=== PATIENT | female | born 1995 | race Caucasian/White ===

== ENCOUNTER 2016-10-05 21:19 | Observation (INO) | payer OTHER ==
[2016-10-05 22:01] VITALS: PULSE 94
[2016-10-05 23:09] VITALS: BP 130/90
== END 2016-10-05 23:27 | disposition home or self-care (01) ==
LOC: OB 21:19 → UNDOADMOB 21:19 → UNDODISOB 23:27
PROVIDERS: ADMIT Family Medicine; ATTEND Family Medicine
DX: Z34.83 Encounter for supervision of other normal pregnancy, third trimester (principal)
CPT/HCPCS: 80307; G0378

== ENCOUNTER 2016-10-08 11:49 | Inpatient (IN) | payer OTHER ==
[~2016-10-08 11:49] MED LIST: Astramorph-Pf 5 MG/10 ML IJ ONE; Decadron 4 MG INJ IV ONE; EPINEPHRINE 1:1000 1 ML AMP IJ ONE; Naropin 0.5% 30 ML VIAL IJ ONE; PHENYLEPHRINE HCL IJ ONE; Pitocin 10 UNITS/ML IV ONE
[2016-10-08] MEDS ORDERED: Sodium Chloride 0.9% 1000 ML 1,000 ML ONE (12:36)
[2016-10-08] MEDS ORDERED: Reglan 10 MG/2 ML IV SCH (13:15)
[2016-10-08] MEDS ORDERED: Pepcid 20 MG VIAL IV SCH (13:15)
[2016-10-08] MEDS ORDERED: BICITRA 30 ML CUP PO SCH (13:15)
[2016-10-08] MEDS ORDERED: Sodium Chloride 0.9% 1000 ML 1,000 ML IV STA (13:16)
[2016-10-08 13:39] LABS: Mean Cell Volume 92.4 fl (78-100); Mean Platelet Volume 10.6 fl (6-9.5); Platelet Count 322 K/mm3 (150-450); Red Blood Count 4.07 M/mm3 (4.1-5.4); Red Cell Distribution Width 13.1 % (11.5-14.0); White Blood Count 12.4 K/mm3 (4.0-10.5)
[2016-10-08 13:40] LABS: Mean Corpuscular Hemoglobin 30.9 pg (26-32)
[2016-10-08] MEDS ORDERED: Lactated Ringers 1,000 ML IV ONE (13:43)
[2016-10-08] MEDS ORDERED: KEFZOL 1 GM ONE (13:43)
[2016-10-08] MEDS: Lactated Ringers 1,000 ML IV SCH (13:44)
[2016-10-08 13:50] LABS: INR 0.93 (0.8-3.0); PROTIME 10.4 SECONDS (9.95-12.35)
[2016-10-08 13:53] LABS: PTT 27.5 SECONDS (25.3-37.0)
[2016-10-08 14:16] LABS: COMPLETE URINE MICROSCOPIC? YES; Collection Type VOID; Ph 5.5 (5-6)
[2016-10-08 14:17] LABS: Bacteria FEW /HPF (NEGATIVE); Epithelial Cells MANY /HPF (FEW); Mucus MODERATE /HPF (NEGATIVE); WBC 0-2 /HPF (0-5)
[2016-10-08] MEDS ORDERED: OFIRMEV 100 ML IV ONE (14:47)
[2016-10-08] MEDS ORDERED: Zofran 4 MG/2 ML VIAL IV PRN (16:03)
[2016-10-08] MEDS ORDERED: Nubain 10 MG/ML IV PRN (16:03)
[2016-10-08] MEDS ORDERED: CLARITIN 10 MG PO PRN (16:03)
[2016-10-08] MEDS ORDERED: PERCOCET TABLET 5/325MG PO PRN (16:03)
[2016-10-08] MEDS ORDERED: Narcan 0.4 MG/ML IV PRN (16:03)
[2016-10-08] MEDS ORDERED: TYLENOL EXTRA STRENGTH 500 MG PO PRN (16:03)
[2016-10-08] MEDS ORDERED: DEMEROL 50 MG IV PRN (16:03)
[2016-10-08] MEDS ORDERED: TUCKS TP PRN (16:03)
[2016-10-08] MEDS ORDERED: Anucort-HC SUPPOSITORY PR PRN (16:03)
[2016-10-08] MEDS ORDERED: Mylicon 80MG PO PRN (16:03)
[2016-10-08] MEDS ORDERED: CORTISONE 1% CREAM TP PRN (16:03)
[2016-10-08] MEDS ORDERED: LANSINOH 40 GM TOP PRN (16:03)
[2016-10-08] MEDS ORDERED: HOLD NARCOTIC ANALGESICS AND SEDATIVES X24 HR MC PRN (16:03)
[2016-10-08] MEDS ORDERED: Dulcolax 10 MG SUPP PR PRN (16:03)
[2016-10-08] MEDS ORDERED: MORPHINE SULFATE 2 MG INJ IV PRN (16:03)
[2016-10-08] MEDS: Dextrose 5%-Lr IV Solution 1000 ML 1,000 ML IV SCH (16:51)
[2016-10-08] MEDS: BENADRYL 50 MG/ML IV PRN (16:54)
[2016-10-08] MEDS ORDERED: Adacel Vial IM ONE (18:00)
[2016-10-08] MEDS: Colace 100 MG PO SCH (22:01)
[2016-10-08] MEDS: Sodium Chloride 0.9% 10 ML FLUSH Syringe IJ SCH (23:43)
[2016-10-09] MEDS: Dextrose 5%-Lr IV Solution 1000 ML 1,000 ML IV SCH ×2 (00:09→16:28)
[2016-10-09] MEDS: BENADRYL 50 MG/ML IV PRN (02:41)
[2016-10-09 05:51] LABS: Mean Cell Volume 93.5 fl (78-100); Mean Corpuscular Hemoglobin 30.9 pg (26-32); Mean Platelet Volume 10.9 fl (6-9.5); Platelet Count 286 K/mm3 (150-450); Red Blood Count 3.52 M/mm3 (4.1-5.4); Red Cell Distribution Width 13.2 % (11.5-14.0); White Blood Count 19.8 K/mm3 (4.0-10.5)
[2016-10-09 07:34] LABS: BAND 9 % (0.0-2.0); Total Cells Counted 100
[2016-10-09 07:35] LABS: Platelet Estimate NORMAL (NORMAL); Toxic Granulation 1+
--- NOTE | 2016-10-09 07:46 | OP ---
SURGERY DATE/TIME: 10/08/2016 1413 PREOPERATIVE DIAGNOSES: 1) Term intrauterine . 2) Previous section. 3) Labor. POSTOPERATIVE DIAGNOSES: 1) Term intrauterine . 2) Previous section. 3) Delivered. PROCEDURE: Repeat lower uterine segment transverse incision section. SURGEON: Dr. Arias. ANESTHESIA: Spinal. HISTORY: The patient is a 21 year old white female presenting now for elective repeat section. The patient is at 38 and a half weeks. She presented in labor. The patient was felt the need to have the procedure performed presently due to the fact that she was in labor. The patient was reappraised of the risks of the procedure including the risk of wound infection, possible bleeding requiring transfusion, and possible injury to any intra-abdominal organs. The patient verbalized her understanding and desired to have the procedure performed. DESCRIPTION OF PROCEDURE: The patient was prepped and draped in the supine position. After adequate regional anesthesia was confirmed, a Pfannenstiel incision was made over the previous scar and carried down sharply through the fascia which was divided in a horizontal fashion. The rectus muscles were then bluntly and sharply dissected away from the overlying fascia and bluntly retracted laterally. The peritoneal cavity was then entered. A bladder flap was developed and the bladder was retracted inferiorly. The uterus was scored in a horizontal fashion and entered in the midline. It was noted to be quite thin. The wound was extended using bandage scissors. A white male was delivered through the abdominal wound. The cord was doubly clamped and divided between the clamps. The baby was handed off for further care. The placenta was then manually removed from the uterus. The uterus was then exteriorized and wrapped in moist gauze. The wound edges were then reapproximated using 1-0 chromic suture in a running, interlocking fashion. The cul-de-sac area was then swabbed clear of blood and amniotic fluid and the uterus was replaced in the abdominal cavity. Paracolic gutters were also swabbed clear of blood of amniotic fluid. The peritoneum was then repaired using 3-0 chromic sutures in a running fashion. The fascia was repaired using 0 Vicryl suture in a running fashion. The skin edges were reapproximated using jeannette. The sponge, needle and instrument counts were reported as correct at the end of the procedure. Estimated blood loss was 350 cc. The patient was taken back to the recovery room in good condition.
[2016-10-09] MEDS: Colace 100 MG PO SCH ×2 (09:42→20:15)
[2016-10-09] MEDS: FERREX 150 PO SCH (09:42)
[2016-10-09] MEDS ORDERED: M-M-R II Vaccine With Diluent SQ ONE (10:00)
[2016-10-09 11:18] VITALS: O2SAT 100
[2016-10-09] MEDS ORDERED: Tylenol #3 Tablet PO PRN (16:03)
[2016-10-09] MEDS ORDERED: Phenergan 25 MG INJ IM PRN (16:03)
[2016-10-09] MEDS ORDERED: Ambien 10 MG PO PRN (16:03)
[2016-10-09] MEDS ORDERED: DEMEROL 75 MG IM PRN (16:03)
[2016-10-09] MEDS: Sodium Chloride 0.9% 10 ML FLUSH Syringe IJ SCH (16:27)
[2016-10-09] MEDS: Lactated Ringers 1,000 ML IV SCH ×2 (16:28)
[2016-10-09] MEDS: MOTRIN 400 MG PO PRN (16:57)
[2016-10-10] MEDS: MOTRIN 400 MG PO PRN ×2 (00:56→07:57)
[2016-10-10] MEDS: FERREX 150 PO SCH (07:56)
[2016-10-10] MEDS: Colace 100 MG PO SCH (07:57)
--- NOTE | 2016-10-10 10:48 | DS ---
DISCHARGE DIAGNOSIS: SECTION DELIVERY TERM INTRAUTERINE . HOSPITAL COURSE: The patient is a 21 year-old white female presented to the hospital for elective repeat section. The patient had the procedure performed on the afternoon of 10/08/2016 due to presenting in labor at 38 1/2 weeks. The patient did well postoperatively. She is afebrile with stable vital signs. Her postoperative hemoglobin was 10.9 with PLT count 286,000. The patient is felt to be ready for discharge home by the morning of 10/10/2016 with instructions to follow up in the office in six days for removal of the jeannette and postoperative wound check. The patient is instructed to call if she has any problems in the interim with fever, increasing belly pain, increasing bleeding or discharge.
[2016-10-10 17:21] VITALS: BP 140/84; PULSE 96
== END 2016-10-10 17:40 | disposition home or self-care (01) | DRG 766 ==
LOC: OB 11:49 → OBSVTOIN 11:49
PROVIDERS: ADMIT Family Medicine; ATTEND Family Medicine
PROC: 10D00Z1 Extraction of Products of Conception, Low, Open Approach (ICD-10-PCS; principal; 2016-10-08)
DX: O34.211 Maternal care for low transverse scar from previous cesarean delivery (principal); Z3A.38 38 weeks gestation of pregnancy; Z37.0 Single live birth
CPT/HCPCS: 01961; 36415; 64425; 80307; 81000; 85025; 85027; 85610; 85730; 86850; 86900; 86901; 87086; 90471; 90707; 90715; 94799; 99140; G0378; J0171; J0690; J1100; J1200; J2274; J2300; J2370; J2590; J2795; L0625; A9270-GY

== ENCOUNTER 2016-12-30 22:26 | Emergency (ER) | payer OTHER ==
[2016-12-30 22:42] VITALS: BP 131/100; PULSE 66; O2SAT 99
[2016-12-30] MEDS ORDERED: AMOXIL 500 MG PO ONE (22:51)
[2016-12-30] MEDS ORDERED: Tylenol #3 Tablet PO ONE ×2 (22:51→22:52)
[2016-12-30] MEDS ORDERED: Tylenol #3 Tablet ONE (23:03)
[2016-12-30] MEDS ORDERED: AMOXIL 500 MG ONE (23:03)
--- NOTE | 2016-12-30 23:12 | ERPHSYRPT ---
- History of Present Illness Time Seen by Provider: 12/30/16 22:35 Source: patient Exam Limitations: clinical condition Patient Subjective Stated Complaint: Pt states that she has had a toothache on the right side of mouth for a couple of days. Last night the right side of her face started to swell. She has some leftover Tylenol #3 that she has taken that helps the pain a little bit. She said she is having severe pain and is worried about infection. Triage Nursing Assessment: Pt alert and oriented x3. skin pink warm and dry. afebrile. right side of face swollen. pt would not open mouth wide enough for exam of mouth Physician History: PATIENT COMPLAINS OF RIGHT LOWER TOOTHACHE ASSOCIATED WITH FACIAL SWELLING. DENIES FEVER, CHILLS, DIFFICULTY BREATHING OR SWALLOWING. Timing/Duration: gradual onset Severity: moderate ENT Location: dental Prearrival Treatment: prescription meds (TOOK 2 TYLENOL #3 PRIOR TO ER ARRIVAL) Modifying Factors: Improves With: activity Associated Symptoms: epistaxis Allergies/Adverse Reactions: No Known Drug Allergies Allergy (Verified 12/30/16 22:34) Hx Tetanus, Diphtheria Vaccination/Date Given: Yes Hx Influenza Vaccination/Date Given: Yes Hx Pneumococcal Vaccination/Date Given: No - Review of Systems Constitutional: No Fever, No Chills Ears, Nose, & Throat: Mouth Pain, Other (TOOTHACHE) Neurological: No Symptoms Psychological: No Symptoms Endocrine: No Symptoms - Past Medical History Pertinent Past Medical History: Yes Neurological History: No Pertinent History ENT History: No Pertinent History Cardiac History: No Pertinent History Respiratory History: Pneumonia Endocrine Medical History: No Pertinent History Musculoskeletal History: No Pertinent History GI Medical History: No Pertinent History History: No Pertinent History Psycho-Social History: No Pertinent History Female Reproductive Disorders: No Pertinent History - Past Surgical History Past Surgical History: Yes Neuro Surgical History: No Pertinent History Cardiac: No Pertinent History Respiratory: No Pertinent History Gastrointestinal: No Pertinent History Genitourinary: No Pertinent History Female Surgical History: Section Other Surgical History: x2 - Social History Smoking Status: Never smoker Exposure to second hand smoke: Yes Drug Use: none Patient Lives Alone: No - Female History Hx Last Menstrual Period: 12/22/2016 Hx Now: No - Nursing Vital Signs Nursing Vital Signs: Initial Vital Signs Temperature 98.6 F Temperature Source Oral Pulse Rate 66 Respiratory Rate 16 Blood Pressure [Right Arm] 131/100 Pain Intensity 6 - Physical Exam General Appearance: no apparent distress, alert Eye Exam: bilateral eye: PERRL, EOMI Ear Exam: bilateral ear: auricle normal, canal normal Nasal Exam: normal inspection Throat Exam: pharynx normal, dental tenderness (DENTAL CARIES), moist mucus membranes, No tonsillar exudate Neck Exam: supple Cardiovascular/Respiratory Exam: normal breath sounds, regular rate/rhythm Abdominal Exam: non-tender, soft Neurologic Exam: alert, oriented x 3, sensation nml, No motor deficits Skin Exam: normal color, warm, dry SpO2 Interpretation: normal SpO2: 99 Oxygen Delivery: Room Air Ordered Tests: Medication Summary Discontinued Medications Generic Name Dose Route Start Last Admin Trade Name Freq PRN Reason Stop Dose Admin Acetaminophen/Codeine Phosphate 1 tab 12/30/16 22:51 Tylenol #3 Tablet PO 12/30/16 22:52 STAT ONE Acetaminophen/Codeine Phosphate 2 tab 12/30/16 22:52 Tylenol #3 Tablet PO 12/30/16 22:53 SENT HOME W/ PATIENT ONE Acetaminophen/Codeine Phosphate Confirm 12/30/16 23:03 Tylenol #3 Tablet Administered 12/30/16 23:04 Dose 3 tab .ROUTE .STK-MED ONE Amoxicillin 500 mg 12/30/16 22:51 Amoxil 500 Mg PO 12/30/16 22:52 STAT ONE Amoxicillin Confirm 12/30/16 23:03 Amoxil 500 Mg Administered 12/30/16 23:04 Dose 500 mg .ROUTE .STK-MED ONE - Progress Progress Note: 12/30/16 23:10 PATIENT GIVEN AMOXICILLIN 500MG ORALLY Counseled pt/family regarding: diagnosis, need for follow-up - Departure Time of Disposition: 23:17 Departure Disposition: Home Clinical Impression: DENTAL CARIES Condition: Stable Critical Care Time: No Additional Instructions: ANTIBIOTIC AMOXICILLIN 500MG EVERY 8 HOURS FOR 10 DAYS. CONTINUE TYLENOL #3 FOR PAIN NEEDED. CONSULT A DENTIST TOMORROW FOR FOLLOWUP. Prescriptions: Amoxicillin 500 mg PO TID #30 capsule
== END 2016-12-30 23:24 | disposition home or self-care (01) ==
LOC: ED 22:26
DX: K02.9 Dental caries, unspecified (principal)
CPT/HCPCS: 99282; 99283; A9270-GY